=== PATIENT | male | born 2000 | race Caucasian/White ===

== ENCOUNTER 2025-02-13 20:20 | Emergency (ER) | payer OTHER ==
[~2025-02-13] VITALS: Ht 172.7 cm; Wt 75.0 kg
[~2025-02-13 20:20] MED LIST: IBUP-2028 MT; TOPUD PO
[2025-02-13 20:23] VITALS: O2SAT 98
[2025-02-13] MEDS ORDERED: OLAN10TA72 MT (21:20)
[2025-02-13] MEDS ORDERED: TRAZ-251 MT (21:20)
[2025-02-13 22:12] VITALS: BP 131/81; PULSE 95; RESP 18; TEMP 36.8; O2SAT 98
== END 2025-02-13 22:13 | disposition home or self-care (01) ==
LOC: ER 20:20
DX: F20.9 Schizophrenia, unspecified (principal); Z76.0 Encounter for issue of repeat prescription; F31.9 Bipolar disorder, unspecified; Z79.899 Other long term (current) drug therapy
CPT/HCPCS: 99281

== ENCOUNTER 2025-02-24 06:50 | Emergency (ER) | payer MEDICAID, OTHER ==
[~2025-02-24] VITALS: Ht 165.1 cm; Wt 62.0 kg
[~2025-02-24 06:50] MED LIST changes: +OLAN10TA72 MT; +TRAZ-251 MT
[2025-02-24 07:50] LABS: HEMATOCRIT. 45.3 % (42.0-52.0); MEAN CORPUSCULAR HEMOGLOBIN 30.6 pg (28.0-32.0); MEAN CORPUSCULAR HGB CONC 33.2 g/dL (31.0-37.0); MEAN CORPUSCULAR VOLUME 92.1 fL (80.0-94.0); MEAN PLATELET VOLUME 8.3 fl (7.4-10.4); PLATELET 398 x1000/uL (130-400); RED BLOOD CELL COUNT 4.92 mill/uL (4.7-6.1); RED CELL DISTRIBUTION WIDTH 14.1 % (11.6-14.6); WHITE BLOOD COUNT 13.8 x1000/uL (4.5-11.0)
[2025-02-24 07:54] LABS: CHLORIDE 101 mEq/L (98-107); POTASSIUM 3.4 mEq/L (3.5-5.1); SODIUM 137 mEq/L (136-145)
[2025-02-24 07:55] LABS: CARBON DIOXIDE 27 mEq/L (21-32); DIFFERENTIAL COMMENT 1
[2025-02-24 07:56] LABS: CALCIUM 10.4 mg/dL (8.7-10.4)
[2025-02-24 08:00] LABS: GLUCOSE 96 mg/dL (70-105); UREA NITROGEN BLOOD 7 mg/dL (9-23)
[2025-02-24 08:01] LABS: ETHANOL BLOOD < 10 mg/dL (<10)
[2025-02-24] MEDS: OLANZAPINE 10 MG/VIAL IM ONE (08:18)
[2025-02-24 08:19] LABS: PLATELET ESTIMATE NORMAL
[2025-02-24] MEDS ORDERED: LORAZEPAM 2MG/ML INJ IM ONE (09:30)
[2025-02-24] MEDS: LORAZEPAM 2MG/ML UD SYRINGE IM NR (09:45)
[2025-02-24 14:48] LABS: CLARITY URINE CLEAR (CLEAR); COLOR URINE YELLOW (YELLOW); GLUCOSE URINE NEGATIVE (NEGATIVE); KETONES URINE 2+ (NEGATIVE); LEUKOCYTE ESTERASE URINE NEGATIVE (NEGATIVE); NITRITE URINE NEGATIVE (NEGATIVE); OCCULT BLOOD URINE NEGATIVE (NEGATIVE); PH URINE 7.5 (4.5-8.0); PROTEIN URINE TRACE (NEGATIVE); SPECIFIC GRAVITY URINE 1.021 (1.005-1.030)
[2025-02-24 15:08] LABS: *AMPHETAMINES SCREEN URINE PRESUMPTIVE POSITIVE (NEGATIVE); *BARBITURATES SCREEN URINE NEGATIVE (NEGATIVE); *BENZODIAZEPINES SCREEN URINE PRESUMPTIVE POSITIVE (NEGATIVE); *COCAINE SCREEN URINE NEGATIVE (NEGATIVE); METHADONE URINE SCREEN NEGATIVE (NEGATIVE); OPIATES URINE SCREEN NEGATIVE (NEGATIVE); PHENCYCLIDINE URINE SCREEN NEGATIVE (NEGATIVE)
[2025-02-24 15:09] LABS: CANNABINOID URINE SCREEN PRESUMPTIVE POSITIVE (NEGATIVE); ECSTASY MDMA SCREEN URINE CONF.TEST INDICATED (NEGATIVE)
[2025-02-24 15:36] LABS: RBC URINE NONE SEEN /hpf (0-2); SQUAMOUS EPITHELIAL CELL URINE RARE /lpf (RARE/1+); WBC URINE 0-2 /hpf (0-2)
[2025-02-24 15:37] LABS: BACTERIA URINE TRACE; CALCIUM OXALATE CRYSTALS URINE 1+ /lpf
[2025-02-24] MEDS: HALOPERIDOL LACTATE 5MG/ML VIAL IM ONE (18:15)
[2025-02-24] MEDS: OLANZAPINE 10MG TABLET PO STA (22:59)
[2025-02-25 06:00] VITALS: TEMP 36.7
[2025-02-25] MEDS: OLANZAPINE 10 MG/VIAL IM ONE (15:14)
[2025-02-25 16:51] VITALS: O2SAT 99
[2025-02-25] MEDS: MIDAZOLAM HCL 2 MG/2 ML VIAL IM ONE (16:51)
[2025-02-25 17:00] VITALS: BP 108/71; PULSE 99; RESP 16; O2SAT 100
[2025-02-25] MEDS ORDERED: OLANZAPINE 5MG TABLET PO SCH (21:00)
== END 2025-02-25 17:29 | disposition short-term general hospital (02) ==
LOC: ER 06:50
DX: F29 Unspecified psychosis not due to a substance or known physiological condition (principal); F20.0 Paranoid schizophrenia; Z79.899 Other long term (current) drug therapy; Z20.822 Contact with and (suspected) exposure to COVID-19
CPT/HCPCS: 80305; 80048; 81003; 80307; 80329; 80320; 85025; 36415; 96372 ×2; 99291; 87426; J3490; J1630; J2060; J2250; Z7610 ×2; G0480

== ENCOUNTER 2025-07-01 20:29 | Emergency (ER) | payer MEDICAID ==
[~2025-07-01] VITALS: Ht 167.6 cm; Wt 63.0 kg
[2025-07-01 20:37] VITALS: O2SAT 98
[2025-07-01 21:23] LABS: BASOPHILS % 0.4 % (0.0-2.0); EOSINOPHILS % 0.4 % (0.0-5.0); HEMATOCRIT. 44.8 % (42.0-52.0); HEMOGLOBIN. 15.0 g/dL (14.0-18.0); LYMPHOCYTES % 7.1 % (20.0-50.0); MEAN PLATELET VOLUME 8.3 fl (7.4-10.4); MONOCYTES % 11.5 % (2.0-8.0); NEUTROPHILS % 80.6 % (40.0-76.0); PLATELET 337 x1000/uL (130-400); RED BLOOD CELL COUNT 5.01 mill/uL (4.7-6.1); RED CELL DISTRIBUTION WIDTH 13.7 % (11.6-14.6)
[2025-07-01 21:35] LABS: CREATININE 1.1 mg/dL (0.6-1.3); UREA NITROGEN BLOOD 11 mg/dL (9-23)
[2025-07-01 21:36] LABS: ETHANOL BLOOD < 10 mg/dL (<10)
[2025-07-01] MEDS: LORAZEPAM 2MG/ML UD SYRINGE IM NR (21:47)
[2025-07-01] MEDS: DIPHENHYDRAMINE 50MG/ML VIAL IM ONE (21:47)
[2025-07-01] MEDS: HALOPERIDOL LACTATE 5MG/ML VIAL IM ONE (21:47)
[2025-07-02 00:46] LABS: ASPARTATE AMINOTRANSFERASE 38 IU/L (<34); BILIRUBIN DIRECT 0.4 mg/dL (<=3.0); BILIRUBIN TOTAL 1.0 mg/dL (0.1-1.0); PROTEIN TOTAL 8.6 g/dL (6.0-8.3)
[2025-07-02 09:57] LABS: CLARITY URINE CLEAR (CLEAR); COLOR URINE DARK YELLOW (YELLOW); GLUCOSE URINE NEGATIVE (NEGATIVE); KETONES URINE 2+ (NEGATIVE); LEUKOCYTE ESTERASE URINE NEGATIVE (NEGATIVE); NITRITE URINE NEGATIVE (NEGATIVE); OCCULT BLOOD URINE NEGATIVE (NEGATIVE); PH URINE 6.0 (4.5-8.0); PROTEIN URINE TRACE (NEGATIVE); SPECIFIC GRAVITY URINE 1.029 (1.005-1.030); UROBILINOGEN URINE 1.0 E.U./dL (0.2-1.0)
[2025-07-02 10:11] LABS: BACTERIA URINE 2+; RBC URINE NONE SEEN /hpf (0-2); SQUAMOUS EPITHELIAL CELL URINE NONE SEEN /lpf (RARE/1+); WBC URINE 0-2 /hpf (0-2); YEAST URINE NONE SEEN
[2025-07-02 10:20] LABS: *AMPHETAMINES SCREEN URINE PRESUMPTIVE POSITIVE (NEGATIVE); *BARBITURATES SCREEN URINE NEGATIVE (NEGATIVE); *BENZODIAZEPINES SCREEN URINE NEGATIVE (NEGATIVE); *COCAINE SCREEN URINE NEGATIVE (NEGATIVE); METHADONE URINE SCREEN NEGATIVE (NEGATIVE)
[2025-07-02 10:21] LABS: CANNABINOID URINE SCREEN NEGATIVE (NEGATIVE); ECSTASY MDMA SCREEN URINE CONF.TEST INDICATED (NEGATIVE); OPIATES URINE SCREEN NEGATIVE (NEGATIVE); PHENCYCLIDINE URINE SCREEN NEGATIVE (NEGATIVE)
[2025-07-02 18:50] VITALS: BP 107/58; PULSE 103; RESP 16; TEMP 36.7; O2SAT 98
[2025-07-02] MEDS ORDERED: QUETIAPINE FUMARATE 50MG TABLET PO SCH (21:00)
== END 2025-07-02 19:30 | disposition short-term general hospital (02) ==
LOC: ER 20:29
DX: R44.0 Auditory hallucinations (principal); F12.90 Cannabis use, unspecified, uncomplicated; F15.90 Other stimulant use, unspecified, uncomplicated; F41.9 Anxiety disorder, unspecified; Z20.822 Contact with and (suspected) exposure to COVID-19; Z79.899 Other long term (current) drug therapy; Z91.52 Personal history of nonsuicidal self-harm
CPT/HCPCS: 80076; 80048; 80307; 80329; 80320; 85025; 36415; 93005; 96372; 99285; 87426; 80305; 81003; J1200; J1630; J2060; G0480